=== PATIENT | male | born 1980 | race African-American/Black ===

== ENCOUNTER → 2017-03-26 | Outpatient (CLI) | payer MEDICAID ==
--- NOTE | 2017-03-26 16:22 | RADIOLOGY REPORT (SQ) ---
EXAM DESCRIPTION: CHEST PA/LATERAL COMPLETED DATE/TIME: 03/26/2017 4:02 pm REASON FOR STUDY: OTHER FORMS OF DYSPNEA COMPARISON: None. EXAM PARAMETERS: NUMBER OF VIEWS: two views TECHNIQUE: Digital Frontal and Lateral radiographic views of the chest acquired. RADIATION DOSE: NA LIMITATIONS: none FINDINGS: LUNGS AND PLEURA: Basilar atelectasis. No effusions. No pneumothorax. MEDIASTINUM AND HILAR STRUCTURES: No masses or contour abnormalities. HEART AND VASCULAR STRUCTURES: Heart normal size. No evidence for failure. BONES: Deformity of the upper right ribs. Old healed fracture versus ostia chondroma of the 4th righ t rib. HARDWARE: None in the chest. OTHER: No other significant finding. IMPRESSION: Basilar atelectasis. TECHNICAL DOCUMENTATION: JOB ID: [id number] [employer]- All Rights Reserved
== END ==
LOC: OD 15:37
PROVIDERS: ATTEND Physician Assistant
DX: J98.11 Atelectasis (principal); R06.09 Other forms of dyspnea
CPT/HCPCS: 71020

== ENCOUNTER 2017-10-05 21:30 | Emergency (ER) | payer MEDICAID ==
[2017-10-05 21:44] VITALS: BP 132/79
--- NOTE | 2017-10-06 00:04 | ER Document Report ---
ED Fall - General Chief Complaint: Fall Stated Complaint: FALL Time Seen by Provider: 10/06/17 00:01 Mode of Arrival: Wheelchair Information source: Patient, Relative Notes: 37 years old male with history of cerebral palsy, the back Slipped and fell and hit his head on the sink. Subsequently brought in today he remember falling down and coming to the ER in between he has no recollection. Currently having headache and upper back pain. TRAVEL OUTSIDE OF THE [place] IN LAST 30 DAYS: No - Related data Allergies/Adverse Reactions: No Known Allergies Allergy (Unverified 10/05/17 21:59) Past Medical History - Social History Smoking Status: Unknown if Ever Smoked Family History: Reviewed & Not Pertinent Patient has suicidal ideation: No Patient has homicidal ideation: No Renal/ Medical History: Denies: Hx Peritoneal Dialysis Review of Systems - Review of Systems Notes: Thoracic REVIEW OF SYSTEMS: CONSTITUTIONAL : Denies fever, chills, or sweats. Denies recent illness. EENT: Denies eye, ear, throat, or mouth pain or symptoms. Denies nasal or sinus congestion or discharge. Denies throat, tongue, or mouth swelling or difficulty swallowing. CARDIOVASCULAR: Denies chest pain. Denies palpitations or racing or irregular heart beat. Denies ankle edema. RESPIRATORY: Denies cough, cold, or chest congestion. Denies shortness of breath, difficulty breathing, or wheezing. GASTROINTESTINAL: Denies abdominal pain or distention. Denies nausea, vomiting , or diarrhea. Denies blood in vomitus, stools, or per rectum. Denies black, tarry stools. Denies constipation. GENITOURINARY: Denies difficulty urinating, painful urination, burning, frequency, blood in urine, or discharge. MUSCULOSKELETAL: SKIN: Denies rash, lesions or sores. HEMATOLOGIC : Denies easy bruising or bleeding. LYMPHATIC: Denies swollen, enlarged glands. NEUROLOGICAL: ALL OTHER SYSTEMS REVIEWED AND NEGATIVE. Dictation was performed using [employer] voice recognition software PHYSICAL EXAMINATION: GENERAL: Not seems to be in any acute distress. HEAD: Atraumatic, normocephalic. EYES: Pupils equal round and reactive to light, extraocular movements intact, sclera anicteric, conjunctiva are normal. ENT: Nares patent, oropharynx clear without exudates. Moist mucous membranes. NECK: Normal range of motion, supple without lymphadenopathy Range of motion for flexion extension abduction abduction within normal range without any discomfort. No spinal processes tenderness noted. LUNGS: Breath sounds clear to auscultation bilaterally and equal. No wheezes rales or rhonchi. HEART: Regular rate and rhythm without murmurs ABDOMEN: Soft, nontender, nondistended abdomen. No guarding, no rebound. No masses appreciated. Musculoskeletal: Lower extremity splints noted NEUROLOGICAL: Cranial nerves grossly intact. Normal speech, normal gait. Normal sensory, motor exams PSYCH: Normal mood, normal affect. SKIN: Warm, Dry, normal turgor, no rashes or lesions noted. Physical Exam - Vital signs Vitals: Temp Pulse Resp BP Pulse Ox 97.3 F 97 22 H 132/79 H 96 10/05/17 21:42 10/05/17 21:42 10/05/17 21:42 10/05/17 21:42 10/05/17 21:42 Course - Re-evaluation Re-evalutation: 10/06/17 04:17 The disposition was delayed because of radiology, CT was done no reports were available for a long time due to some technical difficulty. - Vital Signs Vital signs: Temp Pulse Resp BP Pulse Ox 97.3 F 97 22 H 132/79 H 96 10/05/17 21:42 10/05/17 21:42 10/05/17 21:42 10/05/17 21:42 10/05/17 21:42 Discharge - Discharge Clinical Impression: Fall Qualifiers: Encounter type: initial encounter Qualified Code(s): W19.XXXA - Unspecified fall, initial encounter Head injury Qualifiers: Encounter type: initial encounter Qualified Code(s): S09.90XA - Unspecified injury of head, initial encounter Injury of upper back Qualifiers: Encounter type: initial encounter Qualified Code(s): S29.9XXA - Unspecified injury of thorax, initial encounter Condition: Fair Disposition: HOME, SELF-CARE Instructions: Head Injury Precautions ([facility]) Referrals: JANESSA KEBEDE PA-C [Primary Care Provider] - Follow up as needed
--- NOTE | 2017-10-06 05:12 | RADIOLOGY REPORT (SQ) ---
EXAM DESCRIPTION: CT HEAD WITHOUT CLINICAL HISTORY: Head injury. Pain. COMPARISON: None available TECHNIQUE: Axial CT of the head obtained from the skull apex to the skull base without contrast. FINDINGS: No acute intracranial hemorrhage identified. No mass, mass effect, shift of the midline, abnormal extra-axial fluid collection or CT evidence of acute ischemic change identified. The ventricular system is unremarkable. No acute abnormalities of the supratentorial white matter, basal ganglia, cerebellum, or brainstem. The visualized paranasal sinuses and the mastoids are clear. No skull fracture identified. Visualized orbits and globes are unremarkable. DLP:1292.19 mGy-cm IMPRESSION: 1. No acute intracranial abnormality identified. This exam was performed according to our departmental dose-optimization program, which includes automated exposure control, adjustment of the mA and/or kV according to patient size and/or use of iterative reconstruction technique.
--- NOTE | 2017-10-06 05:14 | RADIOLOGY REPORT (SQ) ---
EXAM DESCRIPTION: T SPINE AP/LAT CLINICAL HISTORY: Back injury COMPARISON: None. FINDINGS: 2 views of the thoracic spine. Pedicles identified throughout. No widening of the paraspinous lines. Visualized vertebral body height preserved. T1 not well evaluated due to overlying structures. No fracture of the visualized ribs. No definite pneumothorax. The heart is not enlarged. IMPRESSION: 1. No definite acute abnormality of the thoracic spine by plain film criteria.
== END 2017-10-06 03:30 | disposition home or self-care (01) ==
LOC: ER 21:30
DX: S09.90XA Unspecified injury of head, initial encounter (principal); S29.9XXA Unspecified injury of thorax, initial encounter; W01.198A Fall on same level from slipping, tripping and stumbling with subsequent striking against other object, initial encounter; R41.3 Other amnesia; G80.9 Cerebral palsy, unspecified
CPT/HCPCS: 70450; 72070; 99284